=== PATIENT | female | born 1990 | race African-American/Black ===

== ENCOUNTER 2017-08-27 17:54 | Emergency (ER) | payer SELFPAY ==
[~2017-08-27] VITALS: Ht 167.6 cm; Wt 96.2 kg
[2017-08-27] MEDS ORDERED: IV NORMAL SALINE 1000ML BAG 1,000 ML IV SCH (18:29)
[2017-08-27] MEDS ORDERED: ONDANSETRON PF 4 MG/2 ML VIAL. IV ONE (18:30)
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
[2017-08-27] MEDS: fentaNYL PF VIAL 100 MCG/2 ML VIAL IV PRN ×2 (19:16→20:36)
[2017-08-27 19:30] VITALS: BP 112/72
[2017-08-27 19:44] LABS: NEG OBC SER NEG; POS OBC SER POS
[2017-08-27 19:53] LABS: BASO % 1 % (0-3); EOS % 4 % (0-3); HEMATOCRIT 40.6 % (36.0-47.0); HEMOGLOBIN 13.1 g/dL (12.0-15.5); LYMPH # 1.6 x10^3/uL (1.0-4.8); LYMPH % 35 % (24-48); MEAN CORPUSCULAR HEMOGLOBIN 30 pg (25-35); MEAN CORPUSCULAR HGB CONC 32 g/dL (31-37); MEAN CORPUSCULAR VOLUME 92 fL (79-100); MONO % 8 % (0-9); NEUT % 52 % (31-73); PLATELET COUNT 230 x10^3/uL (140-400); WHITE BLOOD COUNT 4.5 x10^3/uL (4.0-11.0)
[2017-08-27 19:57] LABS: CALCIUM 8.2 mg/dL (8.5-10.1); CREATININE 0.7 mg/dL (0.6-1.0); GFR 122.4
[2017-08-27] MEDS ORDERED: CYCL10TA2 PO (20:53)
[2017-08-27] MEDS ORDERED: NAPR-683 PO (20:53)
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
== END 2017-08-27 21:05 | disposition home or self-care (01) ==
LOC: ER 17:54
DX: S16.1XXA Strain of muscle, fascia and tendon at neck level, initial encounter (principal); S39.012A Strain of muscle, fascia and tendon of lower back, initial encounter; S93.401A Sprain of unspecified ligament of right ankle, initial encounter; S80.02XA Contusion of left knee, initial encounter; S09.90XA Unspecified injury of head, initial encounter; V43.52XA Car driver injured in collision with other type car in traffic accident, initial encounter; Y93.I9 Activity, other involving external motion; Y92.410 Unspecified street and highway as the place of occurrence of the external cause; Y99.8 Other external cause status
CPT/HCPCS: 36415; 70450; 72125; 73562; 73610; 80048; 84703; 85025; 96361; 96374; 96375; 96376; 99285; J2405; J3010; J7030

== ENCOUNTER 2020-11-28 15:48 | Emergency (ER) | payer SELFPAY ==
[~2020-11-28] VITALS: Ht 170.2 cm; Wt 86.0 kg
[~2020-11-28 15:48] MED LIST: CYCL10TA2 PO; NAPR-683 PO
[2020-11-28 16:11] VITALS: BP 110/60
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
== END 2020-11-28 16:32 | disposition home or self-care (01) ==
LOC: ER 15:48
DX: S01.81XD Laceration without foreign body of other part of head, subsequent encounter (principal); F17.200 Nicotine dependence, unspecified, uncomplicated; Z90.49 Acquired absence of other specified parts of digestive tract; Z98.51 Tubal ligation status; Z91.040 Latex allergy status; Z91.041 Radiographic dye allergy status; X58.XXXD Exposure to other specified factors, subsequent encounter
CPT/HCPCS: 99282